=== PATIENT | female | born 1960 | race Caucasian/White ===

== ENCOUNTER 2017-05-23 08:13 | Day surgery (SDC) | payer OTHER ==
[~2017-05-23 08:13] MED LIST: BUTRANS15 MCG/HR; CARAFATE PO; D3 ULTRA ST5000 UNIT PO; GUMMI BEAR PO; LISINOPRIL2.5 MG PO; MUPIROCIN2 % EX; PROAIR HFA108 MCG/AC IN; PROTONIX40 M2 PO; SERTRALINE25 MG PO; TRAMADOL HCL50 MG PO; VALIUM5 MG PO; XANAX0.5 MG PO
[2017-05-23 11:00] VITALS: BP 127/79
== END 2017-05-23 12:40 | disposition home or self-care (01) | DRG 392 ==
LOC: ENDO 08:13 → ORM 08:50 → ENDO 12:40
PROVIDERS: ATTEND Surgery
PROC: 0DBM8ZX Excision of Descending Colon, Via Natural or Artificial Opening Endoscopic, Diagnostic (ICD-10-PCS; principal; 2017-05-23)
PROC: 0DBN8ZX Excision of Sigmoid Colon, Via Natural or Artificial Opening Endoscopic, Diagnostic (ICD-10-PCS; 2017-05-23)
DX: R19.4 Change in bowel habit (principal); K63.5 Polyp of colon; K57.30 Diverticulosis of large intestine without perforation or abscess without bleeding; F10.20 Alcohol dependence, uncomplicated; Z87.11 Personal history of peptic ulcer disease

== ENCOUNTER 2019-05-18 | Emergency (ER) | payer OTHER ==
[2019-05-18] MEDS ORDERED: WALKER WHEELS/FIXED (21:14)
[2019-05-18] MEDS ORDERED: TRAMADOL HCL50 MG PO (21:17)
[2019-05-18] MEDS ORDERED: LISINOPRIL10 M1 PO (21:17)
[2019-05-18] MEDS ORDERED: BACLOFEN10 MG PO (21:17)
[2019-05-18] MEDS ORDERED: SERTRALINE HCL100 MG PO (21:17)
[2019-05-18] MEDS ORDERED: ALPRAZOLAM0.5 M2 PO (21:18)
[2019-05-18] MEDS ORDERED: GABAPENTIN300 M2 PO (21:18)
== END 2019-05-18 21:50 | disposition home or self-care (01) ==
DX: S82.832A Other fracture of upper and lower end of left fibula, initial encounter for closed fracture (principal); S81.812A Laceration without foreign body, left lower leg, initial encounter; I10 Essential (primary) hypertension; M06.9 Rheumatoid arthritis, unspecified; F17.210 Nicotine dependence, cigarettes, uncomplicated; W10.9XXA Fall (on) (from) unspecified stairs and steps, initial encounter; Y92.009 Unspecified place in unspecified non-institutional (private) residence as the place of occurrence of the external cause

== ENCOUNTER 2019-11-13 05:26 | Emergency (ER) | payer OTHER ==
[~2019-11-13] VITALS: Ht 149.9 cm; Wt 39.1 kg
[~2019-11-13 05:26] MED LIST changes: +ALPRAZOLAM0.5 M2 PO; +BACLOFEN10 MG PO; +GABAPENTIN300 M2 PO; +LISINOPRIL10 M1 PO; +SERTRALINE HCL100 MG PO; +WALKER WHEELS/FIXED
[2019-11-13] MEDS ORDERED: PAIN RELIEF500 M3 PO (07:21)
[2019-11-13] MEDS ORDERED: PANTOPRAZOLE SO40 M1 PO (07:21)
[2019-11-13 07:38] LABS: HEMATOCRIT 34.5 % (37.0-47.0); HEMOGLOBIN 11.8 g/dl (12.0-16.0); IMMATURE GRANULOCYTES 0.5 % (0.0-5.0); MEAN CELL VOLUME 98.6 fL CALC (80.0-100.0); MEAN CORPUSCULAR HGB 33.7 pG CALC (26.0-32.0); MEAN CORPUSCULAR HGB CONC 34.2 g/dL CAL (32.0-36.0); NEUT# 8.8 thou/uL (2.00-7.15); RED BLOOD COUNT 3.5 mill/uL (4.20-5.60); RED CELL DISTRI WIDTH 12.8 % (11.5-15.5)
[2019-11-13 07:51] LABS: URINE BILIRUBIN - DIPSTICK NEGATIVE (NEGATIVE); URINE BLOOD DIPSTICK MODERATE (NEGATIVE); URINE COLOR YELLOW; URINE GLUCOSE - DIPSTICK NEGATIVE (NEGATIVE); URINE KETONE 15 mg/dL (NEGATIVE); URINE LEUK ESTERASE NEGATIVE (NEGATIVE); URINE NITRITE - DIPSTICK NEGATIVE (Negative); URINE PH 5.5 (4.5-8.0); URINE PROTEIN - DIPSTICK NEGATIVE (NEG-TRACE); URINE UROBILINOGEN - DIPSTICK 0.2 E.U./dL (0.2)
[2019-11-13 07:52] LABS: URINE EPITHELIAL CELLS MODERATE EPI/hpf (0-FEW)
[2019-11-13 07:54] LABS: ALBUMIN 4.4 g/dL (3.2-5.0); ALKALINE PHOSPHATASE 91 u/l (38-126); BUN 13 mg/dL (7-17); BUN/CREATININE RATIO 13 (12-20 (CALC)); CHLORIDE 98 mmol/l (95-108); GFR 57 ML/MIN (>=60 (CALC)); GFR FOR AFR.AMER. > 60 ML/MIN (>=60 (CALC)); POTASSIUM 4.4 mmol/l (3.5-5.1); SGOT/AST 42 u/l (14-36); TOTAL PROTEIN 7.1 g/dL (6.3-8.2)
[2019-11-13 08:02] LABS: MYOGLOBIN 486 ng/mL (0 - 62)
[2019-11-13 08:05] LABS: ANION GAP 22 (6-22 (CALC)); BILIRUBIN, TOTAL 0.3 mg/dL (0.0-1.4); CARBON DIOXIDE 16 mmol/l (22-30); SODIUM 132 mmol/l (137-146)
[2019-11-13 08:35] VITALS: BP 134/87
== END 2019-11-13 08:35 | disposition short-term general hospital (02) ==
LOC: ED 05:26
PROVIDERS: Emergency Medicine
DX: S72.141A Displaced intertrochanteric fracture of right femur, initial encounter for closed fracture (principal); I10 Essential (primary) hypertension; M06.9 Rheumatoid arthritis, unspecified; F17.290 Nicotine dependence, other tobacco product, uncomplicated; W19.XXXA Unspecified fall, initial encounter; Y92.009 Unspecified place in unspecified non-institutional (private) residence as the place of occurrence of the external cause; Y99.9 Unspecified external cause status; Z91.81 History of falling; Z11.59 Encounter for screening for other viral diseases

== ENCOUNTER 2020-07-06 07:00 | Emergency (ER) | payer OTHER ==
[~2020-07-06] VITALS: Ht 149.9 cm; Wt 36.0 kg
[~2020-07-06 07:00] MED LIST changes: +PAIN RELIEF500 M3 PO; +PANTOPRAZOLE SO40 M1 PO
[2020-07-06 07:42] LABS: IMMATURE GRANULOCYTES 0.8 % (0.0-5.0); MEAN CELL VOLUME 99.8 fL CALC (80.0-100.0); MEAN CORPUSCULAR HGB CONC 34.1 g/dL CAL (32.0-36.0); NEUT# 4.19 thou/uL (2.00-7.15); RED BLOOD COUNT 4.09 mill/uL (4.20-5.60); RED CELL DISTRI WIDTH 12.6 % (11.5-15.5)
[2020-07-06 07:49] LABS: HEMATOCRIT 40.8 % (37.0-47.0); HEMOGLOBIN 13.9 g/dl (12.0-16.0)
[2020-07-06 08:33] LABS: ALBUMIN 4.2 g/dL (3.2-5.0); ALKALINE PHOSPHATASE 80 u/l (38-126); BUN 4 mg/dL (7-17); BUN/CREATININE RATIO 12 (12-20 (CALC)); CHLORIDE 95 mmol/l (95-108); CREATININE 0.4 mg/dL (0.5-1.0); GFR > 60 ML/MIN (>=60 (CALC)); GFR FOR AFR.AMER. > 60 ML/MIN (>=60 (CALC)); POTASSIUM 4.3 mmol/l (3.5-5.1); SGOT/AST 27 u/l (14-36); SODIUM 127 mmol/l (137-146); TOTAL PROTEIN 6.9 g/dL (6.3-8.2)
[2020-07-06 08:35] LABS: ANION GAP 12 (6-22 (CALC)); BILIRUBIN, TOTAL 0.5 mg/dL (0.0-1.4); CARBON DIOXIDE 24 mmol/l (22-30)
[2020-07-06 08:36] LABS: MYOGLOBIN 87 ng/mL (0 - 62)
[2020-07-06 09:31] LABS: URINE BILIRUBIN - DIPSTICK NEGATIVE (NEGATIVE); URINE BLOOD DIPSTICK SMALL (NEGATIVE); URINE COLOR YELLOW; URINE GLUCOSE - DIPSTICK NEGATIVE (NEGATIVE); URINE KETONE NEGATIVE (NEGATIVE); URINE LEUK ESTERASE NEGATIVE (NEGATIVE); URINE NITRITE - DIPSTICK NEGATIVE (Negative); URINE PROTEIN - DIPSTICK NEGATIVE (NEG-TRACE); URINE SPECIFIC GRAVITY <=1.005; URINE UROBILINOGEN - DIPSTICK 0.2 E.U./dL (0.2)
[2020-07-06 09:33] LABS: URINE EPITHELIAL CELLS FEW EPI/hpf (0-FEW); URINE RBC 0-2 RBC/hpf (0-5)
[2020-07-06 12:42] VITALS: BP 142/81
== END 2020-07-06 12:20 | disposition short-term general hospital (02) ==
LOC: ED 07:00
PROVIDERS: Emergency Medicine
DX: S83.105A Unspecified dislocation of left knee, initial encounter (principal); F10.10 Alcohol abuse, uncomplicated; I10 Essential (primary) hypertension; M06.9 Rheumatoid arthritis, unspecified; F17.210 Nicotine dependence, cigarettes, uncomplicated; X58.XXXA Exposure to other specified factors, initial encounter; Y92.89 Other specified places as the place of occurrence of the external cause; Z20.822 Contact with and (suspected) exposure to COVID-19
CPT/HCPCS: L1830

== ENCOUNTER → 2021-12-18 | Emergency (ER) | payer OTHER ==
[2021-12-18] VITALS (14 sets, daily range): BP systolic 118–159; BP diastolic 68–119
[~2021-12-18] VITALS: Ht 149.9 cm; Wt 45.5 kg
[2021-12-18 16:45] LABS: HEMATOCRIT 32.9 % (37.0-47.0); HEMOGLOBIN 11.4 g/dl (12.0-16.0); IMMATURE GRANULOCYTES 0.4 % (0.0-5.0); MEAN CELL VOLUME 96.5 fL CALC (80.0-100.0); MEAN CORPUSCULAR HGB 33.4 pG CALC (26.0-32.0); MEAN CORPUSCULAR HGB CONC 34.7 g/dL CAL (32.0-36.0); NEUT# 5.12 thou/uL (2.00-7.15); RED BLOOD COUNT 3.41 mill/uL (4.20-5.60)
[2021-12-18 16:57] LABS: ALBUMIN 3.8 g/dL (3.2-5.0); ALKALINE PHOSPHATASE 83 u/l (38-126); ANION GAP 11 (6-22 (CALC)); BILIRUBIN, TOTAL 0.5 mg/dL (0.0-1.4); BUN 11 mg/dL (8-23); BUN/CREATININE RATIO 31 (12-20 (CALC)); CARBON DIOXIDE 21 mmol/l (22-30); CHLORIDE 99 mmol/l (95-108); CREATININE 0.4 mg/dL (0.5-1.0); ETHYL ALCOHOL 0 mg/dl (0-30); GFR FOR AFR.AMER. > 60 ML/MIN (>=60 (CALC)); GFR OTHER RACES > 60 ML/MIN (>=60 (CALC)); LIPASE 45 u/l (23-300); SGOT/AST 31 u/l (9-36); SODIUM 127 mmol/l (137-146); TOTAL PROTEIN 6.5 g/dL (6.3-8.2)
[2021-12-18 17:22] LABS: URINE BILIRUBIN - DIPSTICK NEGATIVE (NEGATIVE); URINE BLOOD DIPSTICK TRACE-INTACT (NEGATIVE); URINE COLOR YELLOW; URINE GLUCOSE - DIPSTICK NEGATIVE (NEGATIVE); URINE KETONE NEGATIVE (NEGATIVE); URINE LEUK ESTERASE NEGATIVE (NEGATIVE); URINE NITRITE - DIPSTICK NEGATIVE (Negative); URINE PROTEIN - DIPSTICK NEGATIVE (NEG-TRACE); URINE SPECIFIC GRAVITY 1.025; URINE UROBILINOGEN - DIPSTICK 0.2 E.U./dL (0.2)
[2021-12-18 19:15] LABS: INTERNATIONAL NORMALIZED RATIO 0.9 RATIO (0.7-1.3); PROTHROMBIN TIME 9.8 SECONDS (9.0-12.5)
== END | disposition short-term general hospital (02) ==
LOC: ED 16:14
PROVIDERS: Family Medicine
DX: R41.82 Altered mental status, unspecified (principal); S51.811A Laceration without foreign body of right forearm, initial encounter; S41.012A Laceration without foreign body of left shoulder, initial encounter; S00.83XA Contusion of other part of head, initial encounter; F10.10 Alcohol abuse, uncomplicated; I10 Essential (primary) hypertension; M06.9 Rheumatoid arthritis, unspecified; M35.00 Sjogren syndrome, unspecified; F17.200 Nicotine dependence, unspecified, uncomplicated; W19.XXXA Unspecified fall, initial encounter; Y92.009 Unspecified place in unspecified non-institutional (private) residence as the place of occurrence of the external cause; Z20.822 Contact with and (suspected) exposure to COVID-19
CPT/HCPCS: J2060; Q3014; Q9967